=== PATIENT | male | born 2005 | race Hispanic/Latino ===

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

== ENCOUNTER 2024-05-29 20:17 | Emergency (ER) | payer OTHER ==
[2024-05-29] MEDS ORDERED: Ondansetron PF 4 MG/2 ML Vial ONE (22:04)
[2024-05-29 22:11] LABS: #Basophils 0.05 10x3/uL (0.0-0.2); #Eosinophils 0.24 10x3/uL (0.0-0.5); #Monocytes 0.49 10x3/uL (0.0-1.1); %Basophils 0.7 % (0.0-2.0); %Eosinophils 3.2 % (0.0-6.0); %Lymphocytes 24.6 % (18.0-47.0); %Monocytes 6.6 % (0.0-10.0); %Neutrophils 64.8 % (40.0-75.0); Hematocrit 44.4 % (38.8-50.0); Hemoglobin 15.8 g/dL (13.5-17.5); Mean Corpuscular HGB CONC 35.6 g/dL (32.0-36.0); Mean Corpuscular Hemoglobin 29.6 pg (27.0-33.0); Mean Corpuscular Volume 83.3 fL (81.2-95.1); Mean Platelet Volume 9.6 fL (7.4-10.4); Platelet Count 280 10x3/uL (150-450); RBC Distribution Width 12.1 % (11.5-14.5); Red Blood Cell (RBC) Count 5.33 10x6/uL (4.32-5.72); White Blood Cell (WBC) Count 7.4 10x3/uL (3.5-10.5)
[2024-05-29] MEDS ORDERED: Ketorolac Tromethamine 30 MG (1 mL) VIAL ONE (22:13)
[2024-05-29 22:29] LABS: Anion Gap 13 mmol/L (10-20); BUN (Urea Nitrogen) 13 mg/dL (8.9-20.6); Calc. Creatinine Clearance 0 mL/min (70-130); Calcium 9.7 mg/dL (7.8-10.44); Carbon Dioxide 25 mmol/L (22-29); Chloride 105 mmol/L (98-107); Estimated GFR 89; Glucose 104 mg/dL (70-105); Sodium 139 mmol/L (136-145)
[2024-05-29 22:33] LABS: Bilirubin Neg (Negative); Blood, Urine Negative (Negative); Clarity Clear (Clear); Glucose, Urine (Dipstick) Normal (Negative); Ketone, Urine Negative (Negative); Leukocyte Negative (Negative); Nitrite Negative (Negative); Protein, Urine (Dipstick) 15 mg/dl (Neg-Trace); Specific Gravity, Urine 1.005 (1.005-1.030); Urobilinogen Normal mg/dL (Less than 2)
[2024-05-29 22:38] LABS: ALT (SGPT) 13 U/L (8-55); AST (SGOT) 19 U/L (5-34); Albumin 4.6 g/dL (3.5-5.0); Alkaline Phosphatase 48 U/L (40-110); Anion Gap 13 mmol/L (10-20); BUN (Urea Nitrogen) 14 mg/dL (8.9-20.6); Bilirubin, Total 0.4 mg/dL (0.2-1.2); Calc. Creatinine Clearance 0 mL/min (70-130); Calcium 9.7 mg/dL (7.8-10.44); Carbon Dioxide 25 mmol/L (22-29); Chloride 105 mmol/L (98-107); Estimated GFR 84; Globulin 3.2 g/dL (2.4-3.5); Glucose 104 mg/dL (70-105); Lipase 25 U/L (8-78); Protein, Total 7.8 g/dL (6.0-8.3); Sodium 139 mmol/L (136-145)
[2024-05-29] MEDS ORDERED: fentaNYL 50 mcg/mL 1 mL Vial ONE (22:56)
[2024-05-29 23:09] LABS: CAUTI Indications for Culture Pelvic or flank pain; RBC/HPF 0-3 HPF (0-3); Squamous Epithelial 0-3 HPF (0-3); WBC/HPF 0-3 HPF (0-3)
[2024-05-29 23:10] LABS: Bacteria/HPF Rare-Few HPF (None Seen); Urine Culture Reflex No No
== END 2024-05-30 02:23 | disposition home or self-care (01) ==
LOC: CSHERS 20:17
DX: R10.31 Right lower quadrant pain (principal)
CPT/HCPCS: 36415; 74177; 80048; 81001; 83605; 83690; 85025; 96361; 96374; 96375; J1885; J2405; J3010

== ENCOUNTER 2024-05-31 10:11 | Emergency (ER) | payer OTHER ==
[2024-05-31 11:35] LABS: Bilirubin Neg (Negative); Blood, Urine Negative (Negative); Clarity Clear (Clear); Glucose, Urine (Dipstick) Normal (Negative); Ketone, Urine 5 mg/dL (Negative); Leukocyte Negative (Negative); Nitrite Negative (Negative); Protein, Urine (Dipstick) Negative (Neg-Trace); Urobilinogen Normal mg/dL (Less than 2)
[2024-05-31 11:55] LABS: Bacteria/HPF 1+ HPF (None Seen); CAUTI Indications for Culture Pelvic or flank pain; RBC/HPF None Seen HPF (0-3); WBC/HPF 0-3 HPF (0-3)
[2024-05-31 11:57] LABS: Urine Culture Reflex No No
[2024-05-31] MEDS ORDERED: Ketorolac Tromethamine 30 MG (1 mL) VIAL ONE (12:05)
[2024-05-31 12:34] LABS: #Basophils 0.04 10x3/uL (0.0-0.2); #Eosinophils 0.14 10x3/uL (0.0-0.5); #Monocytes 0.33 10x3/uL (0.0-1.1); #Neutrophils 4.43 10x3/uL (1.5-8.4); %Basophils 0.7 % (0.0-2.0); %Eosinophils 2.4 % (0.0-6.0); %Lymphocytes 15.4 % (18.0-47.0); %Monocytes 5.6 % (0.0-10.0); %Neutrophils 75.7 % (40.0-75.0); Hematocrit 42.9 % (38.8-50.0); Hemoglobin 14.8 g/dL (13.5-17.5); Mean Corpuscular HGB CONC 34.5 g/dL (32.0-36.0); Mean Corpuscular Hemoglobin 28.6 pg (27.0-33.0); Mean Corpuscular Volume 82.8 fL (81.2-95.1); Mean Platelet Volume 9.8 fL (7.4-10.4); Platelet Count 256 10x3/uL (150-450); RBC Distribution Width 11.9 % (11.5-14.5); Red Blood Cell (RBC) Count 5.18 10x6/uL (4.32-5.72); White Blood Cell (WBC) Count 5.9 10x3/uL (3.5-10.5)
[2024-05-31 12:48] LABS: ALT (SGPT) 14 U/L (8-55); AST (SGOT) 19 U/L (5-34); Albumin 4.6 g/dL (3.5-5.0); Alkaline Phosphatase 47 U/L (40-110); Anion Gap 12 mmol/L (10-20); BUN (Urea Nitrogen) 10 mg/dL (8.9-20.6); Calc. Creatinine Clearance 0 mL/min (70-130); Calcium 9.8 mg/dL (7.8-10.44); Carbon Dioxide 26 mmol/L (22-29); Chloride 107 mmol/L (98-107); Estimated GFR 110; Globulin 2.8 g/dL (2.4-3.5); Glucose 96 mg/dL (70-105); Lipase 17 U/L (8-78); Potassium 4.1 mmol/L (3.5-5.1); Protein, Total 7.4 g/dL (6.0-8.3); Sodium 141 mmol/L (136-145)
[2024-05-31] MEDS ORDERED: fentaNYL 50 mcg/mL 1 mL Vial ONE (13:39)
== END 2024-05-31 14:07 | disposition home or self-care (01) ==
LOC: CSHERS 10:11
DX: N20.0 Calculus of kidney (principal)
CPT/HCPCS: 80053; 81001; 83690; 83735; 85025; 96374; 96375; J1885; J3010